=== PATIENT | male | born 1930 | race Caucasian/White ===

== ENCOUNTER 2016-06-25 10:28 | Day surgery (SDC) | payer MEDICARE, BC ==
--- NOTE | 2016-06-24 00:33 | PREOPHP ---
DATE OF ADMISSION: 06/25/2016 The patient will be admitted on 06/25/[address] Keys. CHIEF COMPLAINT: carcinoma of the urinary bladder. HISTORY OF PRESENT ILLNESS: This patient was found to have carcinoma of the urinary bladder in 2013. He has since had repeated episodes of cystoscopy approximately every 3 months to see if there is any tumor recurrence. The patient now returns for another cystoscopy after approximately 3 months to see if there is any recurrence of his bladder tumor, and if so, removal of these cancers locally. For family history, review of systems, past, history, etc., please see previous chart., account #[id number] dated 07/05/2015. FAMILY HISTORY: Noncontributory. MEDICATIONS: Patient takes the following medications: 1. Albuterol 2 puffs q.i.d. p.r.n. asthma. 2. Robitussin cough medicine, 2 teaspoons every 4 hours p.r.n. cough. 3. Docusate sodium 100 mg b.i.d. 4. Dulcolax rectal suppositories 1 daily p.r.n. constipation. 5. Pantoprazole 40 mg daily. 6. Tamsulosin 0.4 mg daily. 7. Vitamin B12 1000 mcg daily. 8. Vitamin C 500 mg daily. 9. Centrum Silver vitamins 1 daily. 10. Feosol 325 mg t.i.d. ALLERGIES: THE PATIENT HAS NO KNOWN DRUG ALLERGIES. PHYSICAL EXAMINATION: GENERAL: The patient is a well-developed white male who does not appear acutely or chronically ill. VITAL SIGNS: Blood pressure 148/70, pulse 84, respirations 16, temperature 98.6. SKIN: Stasis dermatitis of the lower legs bilaterally. NECK: Supple. Thyroid is not palpable. HEENT: Head is symmetrical with no evidence of injury or deformity. EYES: PERRLA, EOM normal. Discs flat. Peripheral and forward vision grossly intact. EARS, NOSE AND THROAT: Clear. HEART: PMI left fifth interspace, left midclavicular line. Grade I apical and pulmonic systolic mu rmurs. No distention of jugular veins. No ankle edema. Hepatojugular reflux is not present. LUNGS: Clear to A and P. ABDOMEN: Liver, kidneys, spleen are not palpable. Bowel sounds are normal. There are no intraabdo drew masses or bruits. GENITOURINARY: Normal external male genitalia. No hernias are evident. RECTAL: Ampulla empty. No rectal masses. Prostate is 2+ enlarged. No prostatic masses. MUSCULOSKELETAL: Bilateral stasis dermatitis of the lower legs. NEUROLOGIC: DTRs are normal and equal bilaterally including biceps, triceps, knees and ankles. Nivia ntars are flexor. No pathological reflexes are present. PERIPHERAL VASCULAR: No carotid or subclavian artery bruits. Femoral and dorsal pedal pulses are n ormal and equal bilaterally. Posterior tibial pulses are absent bilaterally. NEUROLOGICAL: The patient appears to be mildly mentally retarded. 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 The patient is cleared for surgery. Dictated By: BLAKE MYERS/STEFAN Conf#: [id number] DID#: [id number]
[~2016-06-25] VITALS: Ht 182.9 cm; Wt 84.3 kg
[2016-06-25] VITALS (12 sets, daily range): BP systolic 121–150; BP diastolic 59–80; PULSE 64–81; RESP 13–25; Ht 182.9 cm; Wt 84.3 kg
[~2016-06-25 10:28] MED LIST: ASCO500C7 PO; AZIT250T6 PO; DOCU-159 PO; FER325 PO; MULT-860 PO; PANT40TA3 PO; PHEN15SP14 NASAL; PYRI50TA80 PO; VIT1CAPS42 PO
[2016-06-25] MEDS ORDERED: TRHC5025 PO (12:19)
--- NOTE | 2016-06-25 12:32 | HPN ---
Date/Time of Note Date/Time of Note DATE: 06/25/16 TIME: 12:31 Interval H&P Admission Note Pt. seen H&P reviewed: No system changes URSULA HENRY MD Jun 25, 2016 12:32
[2016-06-25] MEDS ORDERED: GLYCOPYRROLATE 0.4 MG INJ ONE ×3 (12:46→13:06)
[2016-06-25] MEDS ORDERED: ROCURONIUM 50 MG INJ ONE (12:46)
[2016-06-25] MEDS ORDERED: PROPOFOL 20 ML ONE (12:46)
[2016-06-25] MEDS ORDERED: NEOSTIGMINE 3 MG/3 ML SYRINGE ONE ×2 (12:46→13:06)
[2016-06-25] MEDS ORDERED: SUCCINYLCHOLINE CHLORIDE 100 MG/5 ML SYG IV ONE (12:46)
[2016-06-25] MEDS ORDERED: LIDOCAINE 2% (SDV) 5 ML INJ ONE (12:46)
[2016-06-25] MEDS ORDERED: CIPROFLOXACIN 400MG/D5W 200 ML ONE (13:05)
[2016-06-25] MEDS ORDERED: METOCLOPRAMIDE 10 MG INJ IV PRN (14:00)
[2016-06-25] MEDS ORDERED: MEPERIDINE 25 MG INJ IV PRN (14:00)
[2016-06-25] MEDS ORDERED: MIDAZOLAM 1 MG/ML 2 ML INJ IV PRN (14:00)
[2016-06-25] MEDS ORDERED: ONDANSETRON 4 MG INJ IV PRN (14:00)
[2016-06-25] MEDS ORDERED: HYDROmorphONE (0.2 MG/ML) 10ML SYG IV PRN ×2 (14:00)
[2016-06-25] MEDS ORDERED: FENTAnyl 50 MCG/ML VIAL IV PRN ×2 (14:00)
[2016-06-25] MEDS ORDERED: DIPHENHYDRAMINE 50 MG INJ IV PRN (14:00)
[2016-06-25] MEDS ORDERED: HYDROCODONE/APAP (5/325) TAB PO PRN (14:00)
--- NOTE | 2016-06-25 14:18 | OPR ---
DATE OF OPERATION: 06/25/2016 PREOPERATIVE DIAGNOSIS: Bladder tumors. POSTOPERATIVE DIAGNOSIS: Bladder tumors. Pending pathology report. PROCEDURE PERFORMED: Transurethral resection and fulguration of bladder tumors. FINDINGS: The patient does have an erythematous area in the bladder on the right side proximal and lateral to the right ureteral orifice, and he does have multiple bladder diverticula. The bladder w as very trabeculated, and there is scar tissue from prior resection and fulguration of tumors. PROCEDURE: Transurethral resection of bladder tumors. TECHNIQUE: The patient was brought to the operating room. General anesthesia was induced. The pat ient was positioned in the lithotomy position. The genital area was prepped and draped in the usual sterile manner. Time out was done. The patient was identified by his name, date, and the pr ocedure and he was given 400 mg of Cipro IV at the start of the procedure. Then, a #26 [place] bipol ar resectoscope sheath was introduced under direct vision through the penile urethra all the way to the bladder. Once in the bladder, the area suspected of being the tumor and usually has had the car cinoma in situ kind of tumors, was visualized and it was mostly on the right side of the bladder pr oximal and lateral to the right ureteral orifice. The rest of the bladder was inspected and there w as no evidence of tumor or area suspicious for tumor. Then, using the resectoscope loop, these jackson ors were resected and electrofulgurated and any bleeder that was noted was coagulated. Care was mika en to stay away from the ureteral orifices. At the end of the procedure, the base and the edges wer e well fulgurated and then the bladder was emptied and there was no bleeding. The Cutler catheter wa s inserted, a #22 [place] 3-way with a 30 mL balloon. The irrigation port was plugged with a cathete r plug. I just put it in case we need to do any irrigation. The patient tolerated the procedure we ll and was transferred to recovery room in stable and satisfactory condition. We will later on luciano ve the Cutler catheter in about an hour and then if he voids okay and is stable, then he could go renetta e today. Dictated By: URSULA SOLARES/STEFAN Conf#: [id number] [facility]#: [id number]
== END 2016-06-25 16:00 | disposition home or self-care (01) ==
LOC: SDS 10:28
PROVIDERS: ATTEND Urology
DX: C67.9 Malignant neoplasm of bladder, unspecified (principal); J44.9 Chronic obstructive pulmonary disease, unspecified
CPT/HCPCS: 52234; 87086; 88305; 88342; J0330; J0744; J2710

== ENCOUNTER 2016-11-05 10:10 | Day surgery (SDC) | payer MEDICARE, BC ==
--- NOTE | 2016-11-04 04:30 | PREOPHP ---
DATE OF ADMISSION: 11/05/2016 This is a preoperative report. Please see the discharge on the chart and time per Dr. Keys, to do the surgery on Saturday November 05, 2016. CHIEF COMPLAINT: Carcinoma of the urinary bladder. HISTORY OF PRESENT ILLNESS: The patient has had carcinoma of the urinary bladder. He has had several cystoscopies with removal of an occasional recurrent tumor. The patient is in the hospital again at this time for another cystoscopy and check to see if there are any recurrent tumors involving his urinary bladder. Patient accordingly presents to the hospital at this time for this procedure. FAMILY HISTORY: Mother at age 89 of lung disease. Father of old age at 92. Brother of heart disease in his late 80s. Mother also had carcinoma of the breast but did not of this cause. PAST MEDICAL HISTORY: The patient has a past medical history schizophrenia. He received shock treatment as a young boy, and this resulted in some mental retardation. He has some mild chronic venous insufficiency and stasis dermatitis of both legs. He has varicose veins of both legs. He also suffers from chronic anemia and had been listed as having chronic anemia from . He had the recurrence of carcinoma of urinary bladder several months ago and has been going undergoing routine repeat cystoscopies approximately every 3 months to see if there is any recurrent tumor of the urinary bladder. MEDICATIONS: 1. Albuterol 2 puffs p.r.n. asthma. 2. Robitussin cough medicine 2 teaspoon every 4 hours p.r.n. cough. 3. Docusate sodium 100 mg twice a day. 4. Dulcolax rectal suppository p.r.n. constipation. 5. Pantoprazole 40 mg daily. 6. Tamsulosin 0.4 mg daily. 7. Vitamin B12 1000 mcg daily. 8. Vitamin C 500 mg daily. 9. Centrum Silver vitamins 1 daily. 10. Feosol 325 mg 3 times a day. ALLERGIES: SHE HAS NO KNOWN NO KNOWN DRUG ALLERGIES. PAST MEDICAL HISTORY: Schizophrenia since childhood, mental retardation because of shock treatments which he received in childhood because of schizophrenia. REVIEW OF SYSTEMS: CARDIOVASCULAR: No history of hypertension. No history of congenital heart disease, rheumatic fever, valvular heart disease, arrhythmia, coronary insufficiency, myocardial infarction, or angina pectoris. LUNGS: No history of asthma, tuberculosis, or pneumonia. GASTROINTESTINAL: No history of peptic ulcer disease, cholecystitis, hepatitis, jaundice, pancreatitis, ileitis, colitis, hematemesis, or melena. MUSCULOSKELETAL: No history of skeletal fracture. NEUROLOGICAL: No history of epilepsy, convulsion, or CVA. The patient had schizophrenia in his early life. This resulted in him getting shock treatment, which resulted in mental deficiency. The patient appears to be mildly mentally retarded. GENITOURINARY: History of carcinoma of the urinary bladder with recurrence. The patient undergoes cystoscopy every 3 months to check for recurrent tumor of the bladder. PHYSICAL EXAMINATION: GENERAL: The patient is a well-developed white male, who does not appear to be chronically ill. VITAL SIGNS: Blood pressure 150/72, pulse 84, respirations 16, temperature 98.6 SKIN: Stasis dermatitis of the lower legs bilaterally. NECK: Supple. Thyroid is not palpable. HEENT: The head is symmetrical with no evidence of injury or deformity. EYES: PERRLA. EOM normal. Discs flat. The peripheral form is grossly intact. EARS NOSE AND THROAT: Clear. HEART: PMI at left fifth interspace, left midclavicular line. Grade 1 apical and pulmonic systolic murmurs. No distention of jugular veins. No ankle edema. Hepatic jugular reflexes not present. CHEST: Clear to A and P. ABDOMEN: Liver, kidney, are spleen not palpable. Bowel sounds are normal. No intra-abdominal masses or bruits. GENITOURINARY: Normal external male genitalia. No hernias are evident. RECTAL: Rectal ampulla is empty. No rectal masses. Prostate is 2+ and enlarged, but no prostatic masses. MUSCULOSKELETAL: Bilateral stasis dermatitis of the legs. NEUROLOGICAL: DTRs are normal and equal bilaterally including biceps, triceps, wrist, knees, or ankles, plantars, and flexor. No pathological reflexes are present. PERIPHERAL VASCULAR: No carotid or subclavian artery bruits. Femoral and dorsal pedal pulses are normal and equal bilaterally. Posterior tibial pulses are absent bilaterally. NEUROLOGICAL: The patient appears to be mildly mentally retarded. IMPRESSION: 1. Recurrent carcinoma of the urinary bladder. 2. Mild mental retardation. 3. History of benign prostatic hyperplasia. 4. Chronic anemia. 5. Varicose veins of the legs bilaterally. 6. Stasis dermatitis of the lower legs bilaterally. 7. Schizophrenia in childhood with mild mental retardation. The patient has been cleared by his seamless tube roller for surgery and has been cleared medically by sd for surgery. Dictated By: Constantine Vegas MD /bakari/drew /Document#: [id number]
[2016-11-05] VITALS (10 sets, daily range): BP systolic 110–139; BP diastolic 61–72; PULSE 56–77; RESP 12–20; Ht 182.9 cm; Wt 84.0 kg
[~2016-11-05] VITALS: Ht 182.9 cm; Wt 84.0 kg
[~2016-11-05 10:10] MED LIST changes: -AZIT250T6 PO; +DESFLURANE 15 MIN ONE; +TRHC5025 PO
[2016-11-05] MEDS ORDERED: KEN25O TOP (10:48)
[2016-11-05] MEDS ORDERED: PYRI50TA80 PO (10:49)
[2016-11-05] MEDS ORDERED: FER325 PO (10:49)
[2016-11-05] MEDS ORDERED: VIT1TABL33 PO (10:51)
[2016-11-05] MEDS ORDERED: OXYM15SP NASAL (10:55)
[2016-11-05] MEDS ORDERED: OMEP40CA6 PO (10:55)
[2016-11-05] MEDS ORDERED: IPRA3AMP INHALATION (10:56)
[2016-11-05] MEDS ORDERED: ALBU2.5V3 NEB (10:56)
[2016-11-05] MEDS ORDERED: PROM5SYR2 PO (10:57)
[2016-11-05 12:32] LABS: INR 1.01; PROTIME 13.3 Sec (12.2-14.2)
--- NOTE | 2016-11-05 12:37 | HPN ---
Date/Time of Note Date/Time of Note DATE: 11/05/16 TIME: 12:37 Interval H&P Admission Note Pt. seen H&P reviewed: No system changes URSULA HENRY MD Nov 05, 2016 12:37
[2016-11-05] MEDS ORDERED: PROPOFOL 20 ML ONE (12:38)
[2016-11-05] MEDS ORDERED: LIDOCAINE 2% (SDV) 5 ML INJ ONE (12:38)
[2016-11-05] MEDS ORDERED: FENTAnyl 50 MCG/ML VIAL ONE (12:38)
[2016-11-05] MEDS ORDERED: ROCURONIUM 50 MG INJ ONE (12:38)
[2016-11-05 12:48] LABS: PARTIAL THROMBOPLASTIN TIME 35.5 Sec (25.0-35.0)
[2016-11-05] MEDS ORDERED: CIPROFLOXACIN 400MG/D5W 200 ML ONE (12:59)
[2016-11-05] MEDS ORDERED: FENTAnyl 50 MCG/ML VIAL IV PRN ×2 (13:00)
[2016-11-05] MEDS ORDERED: METOCLOPRAMIDE 10 MG INJ IV PRN (13:00)
[2016-11-05] MEDS ORDERED: MEPERIDINE 25 MG INJ IV PRN (13:00)
[2016-11-05] MEDS ORDERED: HYDROmorphONE (0.2 MG/ML) 10ML SYG IV PRN ×2 (13:00)
[2016-11-05] MEDS ORDERED: ONDANSETRON 4 MG INJ IV PRN (13:00)
[2016-11-05] MEDS ORDERED: DIPHENHYDRAMINE 50 MG INJ IV PRN (13:00)
[2016-11-05] MEDS ORDERED: METHYLENE BLUE 1% 10 ML INJ ONE (13:02)
[2016-11-05] MEDS ORDERED: SUGAMMADEX SODIUM 200 MG/2 ML VIAL IV ONE (13:42)
[2016-11-05] MEDS ORDERED: DEXTROSE 5%-0.45% NACL 1,000 ML IV SCH (14:03)
--- NOTE | 2016-11-05 14:17 | OPR ---
Date/Time of Note Date/Time of Note DATE: 11/05/16 TIME: 14:10 Operative Report Procedure Date: Nov 05, 2016 Preoperative Diagnosis Bladder tumor Postoperative Diagnosis Bladder tumor Operation Performed Transurethral resection of bladder tumor and fulguration Surgeon: URSULA HENRY MD Anesthesia: general Anesthesiologist: MAYRA RUFFIN Estimated Blood Loss: minimal Specimens Bladder tumors Complications: None Pt Condition Post Procedure: stable Indications Recurrent bladder tumors Operative\Procedure Findings Bladder tumor Procedure Description Patient was brought to the operating room and given general anesthesia. Timeout was done ,the patient was identified by his name, birthdate and the procedure. The patient was given 400 mg of Cipro IV at the start of the procedure. Patient was positioned in the lithotomy position. The genital area was prepped and draped in the usual sterile manner. #22 [place] cystoscope was introduced under direct vision through the penile urethra all the way to the bladder. The right ureteral orifice was identified however the left ureteral orifice could not be seen. Then the anesthesiologist gave him 5 mL of methylene blue. The cystoscope was then removed and a 26 [place] bipolar resectoscope was introduced into the bladder. The areas that looked red and suspicious for tumors were resected and electrocoagulated the bladder was inspected thoroughly and only the red areas where dissected and electrocoagulated. Good hemostasis was obtained. The resectoscope was then removed. #22 [place] Cutler catheter three-way was a 30 cc balloon was inserted. Continuous bladder irrigation was started in the operating room. The Cutler catheter connected to a drainage bag and the patient was transferred to recovery room in stable and satisfactory condition. URSULA HENRY MD Nov 05, 2016 14:17
[2016-11-05] MEDS ORDERED: ALBUTEROL 0.083% (NEB) 2.5 MG/3 ML AMP NEB PRN (14:30)
[2016-11-05] MEDS ORDERED: ALBUTEROL/IPRATROPIUM (NEB) 3 ML AMP INH PRN (14:30)
[2016-11-05] MEDS ORDERED: PROMETHAZINE/CODEINE 5ML CUP PO PRN (15:00)
[2016-11-05] MEDS: ASCORBIC ACID 500 MG TAB PO SCH ×2 (15:40→20:33)
[2016-11-05] MEDS: DOCUSATE SODIUM 100 MG CAP PO SCH ×2 (15:40→20:33)
[2016-11-05] MEDS: CIPROFLOXACIN 500 MG TAB PO SCH (17:57)
[2016-11-05] MEDS: FERROUS SULFATE (EC) 325 MG TAB PO SCH (20:33)
[2016-11-05] MEDS: OXYMETAZOLINE 0.05% 15 ML NAS SPRAY NASAL SCH (21:00)
[2016-11-06 00:14] VITALS: BP 104/58; RESP 18
[2016-11-06 05:42] LABS: BASOPHILS % 0.3 % (0.0-2.0); EOSINOPHILS # 0.4 10^3/ul (0.0-0.5); EOSINOPHILS % 2.4 % (0.0-7.0); HEMATOCRIT 33.7 % (42.0-52.0); HEMOGLOBIN 11.2 g/dl (14.0-18.0); LYMPHOCYTES % 13.7 % (15.0-51.0); MEAN CORPUSCULAR HEMOGLOBIN 29.5 pg (29.0-33.0); MEAN CORPUSCULAR HGB CONC 33.2 g/dl (32.0-37.0); MEAN CORPUSCULAR VOLUME 88.7 fl (82.0-101.0); MEAN PLATELET VOLUME 11.1 fl (7.4-10.4); MONOCYTE # 1.2 10^3/ul (0.3-0.9); MONOCYTES % 8.3 % (0.0-11.0); NEUTROPHIL # 10.9 10^3/ul (1.6-7.5); NEUTROPHILS % 74.7 % (39.0-77.0); PLATELET COUNT 245 10^3/UL (140-415); RED CELL DISTRIBUTION WIDTH 14.3 % (11.5-14.5); WHITE BLOOD COUNT 14.5 10^3/ul (4.8-10.8)
[2016-11-06] MEDS ORDERED: PANTOPRAZOLE (EC) 40 MG TAB PO SCH ×2 (06:00→07:00)
[2016-11-06] MEDS: CIPROFLOXACIN 500 MG TAB PO SCH (06:05)
[2016-11-06 08:40] VITALS: BP 142/67; RESP 18
[2016-11-06] MEDS: OXYMETAZOLINE 0.05% 15 ML NAS SPRAY NASAL SCH (08:49)
[2016-11-06] MEDS: FERROUS SULFATE (EC) 325 MG TAB PO SCH ×2 (08:49→13:15)
[2016-11-06] MEDS: ASCORBIC ACID 500 MG TAB PO SCH (08:50)
[2016-11-06] MEDS: DOCUSATE SODIUM 100 MG CAP PO SCH (08:50)
[2016-11-06] MEDS ORDERED: MULTIVITAMINS/MINERALS TAB PO SCH (09:00)
[2016-11-06] MEDS ORDERED: PYRIDOXINE 50 MG TAB PO SCH (09:00)
[2016-11-06] MEDS ORDERED: TRIAMCINOLONE ACET 0.025% 15 GM OINT TOP SCH (09:00)
[2016-11-06] MEDS ORDERED: BETA CAROTENE/VIT C/E/MIN TAB PO SCH (09:00)
[2016-11-06 11:36] LABS: CREATININE 0.97 mg/dl (0.61-1.24); POTASSIUM 4.2 mmol/L (3.5-5.1)
--- NOTE | 2016-11-06 14:05 | PDOCDIS ---
Discharge Instructions CONDITION Patient Condition: Good HOME CARE INSTRUCTIONS: Diet Instructions: RegularSpecial Diet: REGULAR ACTIVITY: Activity Restrictions: Slowly Increase Activity FOLLOW UP/APPOINTMENTS Follow-up Plan November 12 URSULA HENRY MD Nov 06, 2016 14:05
--- NOTE | 2016-11-06 14:11 | DS ---
Date/Time of Note Date/Time of Note DATE: 11/06/16 TIME: 14:07 Discharge Summary Admission/Discharge Info Admit Date/Time November 05, 2016 Discharge Date/Time November 06, 2069 Discharge Diagnosis Bladder tumors, pending pathology report Patient Condition: Good Procedures Transurethral resection of bladder tumors Hx of Present Illness 85-year-old male known to have a history of bladder tumors and carcinoma in situ in the bladder. Cystoscopy in the office showed areas of redness in the bladder suspicious for recurrent cancer and carcinoma in situ. Patient was admitted and underwent a transurethral resection/fulguration of all the red areas in the bladder. Postop he had continuous bladder irrigation and that was stopped last night. The urine remained clear, patient is being discharged today and he will follow-up in the office Hospital Course Hospital course was uneventful patient will continue the medication that he was on prior to admission as well as same diet and he will follow-up with me in the office on November 12, 2016 Home Meds Reported Medications Promethazine HCl/Codeine (Prometh-Codein 6.25-10 mg/5 ml) 5 Ml Syrup, 5 ML PO Q6 Y for COUGH 11/05/16 Ipratropium-Albuterol (Ipratropium-Albuterol) 0.5-3 Mg/3 Ml Ampul.neb, 3 ML INHALATION Q6 Y for WHEEZING AND SOB, #30 VIAL 11/05/16 Albuterol Sulfate* (Albuterol Sulfate* Neb) 0.083%-3 Ml Neb, 2.5 MG NEB Q3H Y for WHEEZING AND SOB, #30 VIAL 11/05/16 Omeprazole* (Omeprazole*) 40 Mg Capsule.dr, 40 MG PO DAILY, #30 CAP 11/05/16 Oxymetazoline Hcl* (Norberto-Synephrine* 12 Hour Nasal) 0.05% - 15 Ml [place].pump, 1 SPRAY NASAL Q12, EA TO EACH NOSTRIL 11/05/16 Vit A/Vit C/Vit E/Zinc/Copper (PRESERVISION AREDS TABLET) 1 Each Tablet, 1 EACH PO DAILY, TAB 11/05/16 Pyridoxine Hcl (Vitamin B6) 50 Mg Tab, 100 MG PO DAILY, TAB 11/05/16 Ferrous Sulfate* (Ferrous Sulfate*) 325 Mg Tabec, 325 MG PO TID, TAB 11/05/16 Triamcinolone Acetonide* (Kenalog*) 0.025%-15GM Oint, 1 APPLIC TOP DAILY, #1 EA 11/05/16 Mu-Vits-Min Th/Lycopene/Lutein (CENTRUM SILVER TABLET) 1 Each Tablet, 1 EACH PO DAILY, TAB 02/06/16 Docusate Sodium* (Docusate Sodium*) 100 Mg Capsule, 100 MG PO BID, #60 CAP 02/06/16 Ascorbic Acid* (Vitamin C*) 500 Mg Capsule.sa, 500 MG PO BID, CAP 02/06/16 Pantoprazole* (Protonix*) 40 Mg Tablet.dr, 40 MG PO AC BREAKFAST, TAB 02/06/16 Discontinued Reported Medications Triamterene-HCTZ* (Triamterene-HCTZ*) 50 - 25 Mg Cap, 1 CAP PO DAILY, CAP 06/25/16 Phenylephrine Hcl* (Norberto-Synephrine* Nasal) 0.25% - 15 Ml [place], 2 SPRAY NASAL Q4H Y for CONGESTION, SPRAY USE FOR 5 DAYS THEN 7 DAYS OFF 02/06/16 Vit C/E/Zn/Coppr/Lutein/Zeaxan (Preservision Areds 2 Softgel) 1 Each Capsule, 1 EACH PO BID, CAP 02/06/16 Pyridoxine Hcl (Vitamin B6) 50 Mg Tab, 100 MG PO, TAB 02/06/16 Ferrous Sulfate* (Ferrous Sulfate*) 325 Mg Tabec, 325 MG PO TID, TAB 02/06/16 Primary Care Provider Constantine Vegas MD Pending Labs Laboratory Tests Test 11/06/16 05:06 11/06/16 11:01 White Blood Count 14.510^3/ul (4.8-10.8) Red Blood Count 3.8010^6/ul (4.70-6.10) Hemoglobin 11.2g/dl (14.0-18.0) Hematocrit 33.7% (42.0-52.0) Mean Corpuscular Volume 88.7fl (82.0-101.0) Mean Corpuscular Hemoglobin 29.5pg (29.0-33.0) Mean Corpuscular Hemoglobin Concent 33.2g/dl (32.0-37.0) Red Cell Distribution Width 14.3% (11.5-14.5) Platelet Count 27050^3/UL (140-415) Mean Platelet Volume 11.1fl (7.4-10.4) Neutrophils % 74.7% (39.0-77.0) Lymphocytes % 13.7% (15.0-51.0) Monocytes % 8.3% (0.0-11.0) Eosinophils % 2.4% (0.0-7.0) Basophils % 0.3% (0.0-2.0) Nucleated Red Blood Cells % 0.0/100WBC (0.0-0.0) Neutrophils # 10.910^3/ul (1.6-7.5) Lymphocytes # 2.010^3/ul (0.8-2.9) Monocytes # 1.210^3/ul (0.3-0.9) Eosinophils # 0.410^3/ul (0.0-0.5) Basophils # 0.010^3/ul (0.0-0.1) Nucleated Red Blood Cells # 0.010^3/ul (0.0-0.0) Sodium Level 141mmol/L (135-144) Potassium Level 4.2mmol/L (3.5-5.1) Chloride Level 100mmol/L (97-110) Carbon Dioxide Level 28mmol/L (21-31) Anion Gap 17 (8-16) Blood Urea Nitrogen 18mg/dl (7-20) Creatinine 0.97mg/dl (0.61-1.24) Glucose Level 97mg/dl (70-220) Calcium Level 9.0mg/dl (8.4-10.2) URSULA HENRY MD Nov 06, 2016 14:11
== END 2016-11-06 14:40 | disposition home or self-care (01) ==
LOC: SDS 10:10 → MS1 14:31 → SDS 11-06 14:40
PROVIDERS: ATTEND Urology
DX: N32.89 Other specified disorders of bladder (principal); F70 Mild intellectual disabilities; N40.0 Benign prostatic hyperplasia without lower urinary tract symptoms; D64.9 Anemia, unspecified; I83.12 Varicose veins of left lower extremity with inflammation; I83.11 Varicose veins of right lower extremity with inflammation; F20.9 Schizophrenia, unspecified; Z82.49 Family history of ischemic heart disease and other diseases of the circulatory system
CPT/HCPCS: 52234; 80048; 85025; 85610; 85730; 88305; J0744; J3010; J7042

== ENCOUNTER 2017-07-15 10:21 | Day surgery (SDC) | END 2017-07-15 18:40 | disposition home or self-care (01) ==

== ENCOUNTER 2017-12-16 10:09 | Day surgery (SDC) | END 2017-12-16 16:20 | disposition home or self-care (01) ==

== ENCOUNTER 2018-09-08 10:49 | Day surgery (SDC) | payer MEDICARE, BC ==
--- NOTE | 2018-09-07 14:59 | HP ---
DATE OF ADMISSION: 09/08/2018 ADMITTING DIAGNOSIS: Recurrent carcinoma of the bladder for elective transurethral resection of blad tyler tumor by Dr. Keys. HISTORY OF PRESENT ILLNESS: The patient is an 87-year-old male with a recurrent bladder carcinoma, s chizophrenia, asthma, gastroesophageal reflux disease and BPH who continues to have recurrent bladder tumors. The patient recently had a cystoscopy done a few months ago and is to get a removal of tumo rs found at that time. The patient denies any fevers, chills or night sweats. The patient denies an y hematuria or burning with urination, but does have some nocturia. REVIEW OF SYSTEMS: No chest pain, no shortness of breath. The patient has intermittent cough. No o rthopnea, no palpitations. Occasional swelling in the ankles, intermittent constipation and intermit tent heartburn. No headache, no dizziness. PAST MEDICAL HISTORY: 1. Recurrent carcinoma of the bladder, status post multiple surgeries and removal. 2. Schizophrenia. 3. Asthma. 4. Gastroesophageal reflux disease. 5. Benign prostatic hypertrophy. 6. Hyperlipidemia. 7. Chronic anemia. 8. Chronic kidney disease stage III. PAST SURGICAL HISTORY: Multiple removal of bladder tumors in the past. FAMILY HISTORY: Mother at age 89 of lung disease. Father at 92 of unknown cause. One bro ther in his late 80s of heart disease. SOCIAL HISTORY: No tobacco, no alcohol use. The patient is a resident at [facility]. MEDICATIONS: 1. Omeprazole 40 mg every day. 2. Albuterol and ipratropium for p.r.n. use in the nebulizer. 3. Montelukast 10 mg daily. 4. Triamterene/hydrochlorothiazide 37.5/25 daily. 5. Gemfibrozil 600 mg b.i.d. 6. Docusate sodium 100 mg daily. ALLERGIES: NONE. PHYSICAL EXAMINATION: VITAL SIGNS: Temperature 97.8, pulse of 81, respirations 16, blood pressure 117/59, oxygen saturatio n 96% on room air. GENERAL: Well-developed, well-nourished male in no acute distress. SKIN: Without obvious rashes. HEENT: EOMI, PERRLA. Oropharynx is clear. NECK: No elevated jugular venous distention, 2+ carotid upstroke without bruits. No thyromegaly. N o lymphadenopathy. CHEST: Clear to auscultation bilaterally. HEART: Regular rate and rhythm. Normal S1, S2. There is a 1/6 systolic ejection murmur best at the left lower sternal border without radiation. ABDOMEN: Soft, nontender, nondistended, normoactive bowel sounds. No hepatosplenomegaly, no hepatoj ugular reflux. RECTAL: Deferred to Urology. EXTREMITIES: No cyanosis, clubbing or edema. NEUROLOGIC: Nonfocal. DIAGNOSTIC EXAMINATION: Glucose of 102, creatinine 1.38, BUN of 25. Sodium 141, potassium 4.5, chlo ride of 105, bicarbonate 26, calcium 9.8, protein 7.3, albumin 4.4, alkaline phosphatase 113, AST of 21, ALT of 15. PTT of 34. INR 1.0, PT of 10.8. White blood cell count 8.6, hemoglobin 10.6, hemato crit 30.3, platelets of 349. Urinalysis shows 3+ occult blood, no protein, no nitrite, 2+ leukocyte esterase, 20 to 40 white blood cells and 10 to 20 red blood cells and urine culture is negative. EKG shows normal sinus rhythm with first-degree AV block but no acute changes and no change from prior E KG. Chest x-ray is pending at the time of this dictation. ASSESSMENT AND PLAN: The patient is an 87-year-old male with recurrent bladder tumors who also has b enign prostatic hypertrophy, gastroesophageal reflux disease, asthma, hyperlipidemia and schizophreni a. The patient is to undergo elective removal of the bladder tumor. 1. Recurrent bladder tumors. The patient is an ASA class 2 anesthesia risk and may proceed with the procedure as scheduled. There are no contraindications to surgery as scheduled. 2. Gastroesophageal reflux disease, stable. Continue with the patient's medications, but he does no t need to take the medication on the day of the surgery. 3. Asthma. Continue with p.r.n. use of his inhalers as well as the Singulair, but the patient does not need to take the medication on the day of surgery. 4. Constipation. Continue with diet and docusate. 5. Schizophrenia, stable without medications. 6. Chronic renal insufficiency, stable. 7. Anemia, stable. Continue to monitor, but no contraindications to surgery. Dictated By: LUNA BAILEY MD SR/NTS Conf#: [id number] DID#: [id number] CC: URSULA KEYS MD;*End*
[2018-09-08] VITALS (22 sets, daily range): BP systolic 121–152; BP diastolic 57–83; PULSE 54–68; RESP 12–32; Ht 170.2 cm; Wt 76.4 kg
[~2018-09-08] VITALS: Ht 170.2 cm; Wt 76.4 kg
--- NOTE | 2018-09-08 07:34 | HPN ---
Date/Time of Note Date/Time of Note DATE: 09/08/18 TIME: 07:34 Interval H&P Admission Note Pt. seen H&P reviewed: No system changes URSULA HENRY MD Sep 08, 2018 07:34
[~2018-09-08 10:49] MED LIST changes: +ALBU2.5V3 NEB; +AZEL137S9 NASAL; -DESFLURANE 15 MIN ONE; +GEMF600T8 PO; +IPRA3AMP29 INHALATION; +MONT10TA24 PO; +OMEP40CA6 PO; +ONDA4TAB95 PO; -PANT40TA3 PO; -PHEN15SP14 NASAL; +PROM5SYR2 PO; +PYRI50TA15 PO; -PYRI50TA80 PO; +SEVOFLURANE 15 MIN ONE; -TRHC5025 PO; +TRIA1CAP PO; +VIT1CAPS15 PO; -VIT1CAPS42 PO
[2018-09-08] MEDS ORDERED: INDIGOTINDISULFONATE 0.8% 5 ML INJ ONE (12:46)
--- NOTE | 2018-09-08 13:32 | PREAC ---
Date/Time of Note Date/Time of Note DATE: 09/08/18 TIME: 13:30 Anesthesia Eval and Record Evaluation Time Pre-Procedure Interview DATE: 09/08/18 TIME: 13:30 Age 87 Sex male NPO: 8 hrs Preoperative diagnosis Bladder CA Planned procedure TURBT Past Medical History Past Medical History: Includes Cardio: Dyslipidemia Pulm: Asthma Renal: CKD, Other (Bladder CA) Heme: Anemia Psych: Other (Schizo) Surgery & Anesthesia Issues No known issue Meds Anticoagulation: No Beta Jet within 24 hr: No Reason Beta Jet not given: Pt. not on B-Jet Reported Medications Promethazine HCl/Codeine (Prometh-Codein 6.25-10 mg/5 ml) 5 Ml Syrup, 30 ML PO Q4 PRN for COUGH 07/15/17 Ondansetron Hcl* (Ondansetron Hcl*) 4 Mg Tablet, 4 MG PO Q8 PRN for NAUSEA AND/OR VOMITING, TAB 07/15/17 Ipratropium-Albuterol (Ipratropium-Albuterol) 0.5-3 Mg/3 Ml Ampul.neb, 3 ML INHALATION Q4 PRN for WHEEZING AND SOB, #30 VIAL 07/15/17 Gemfibrozil* (Gemfibrozil*) 600 Mg Tablet, 600 MG PO BID, TAB 07/15/17 Azelastine Hcl* (Azelastine Hcl*) 137 Mcg/0.137 Ml [place].pump, 1 SPRAY NASAL QHS, #1 EA TO EACH NOSTRIL 07/15/17 Vit C/Renata Ac/Lut/Copper/Znox (PRESERVISION LUTEIN SOFTGEL) 1 Each Capsule, 1 EACH PO BID, CAP 07/15/17 Triamterene/Hydrochlorothiazid (Dyazide 37.5-25 Capsule) 1 Each Capsule, 1 EACH PO DAILY, CAP 07/15/17 Montelukast Sodium* (Montelukast Sodium*) 10 Mg Tablet, 10 MG PO QHS, #30 TAB 07/15/17 Albuterol Sulfate* (Albuterol Sulfate* Neb) 0.083%-3 Ml Neb, 2.5 MG NEB Q4 PRN for WHEEZING AND SOB, #30 VIAL 11/05/16 Omeprazole* (Omeprazole*) 40 Mg Capsule.dr, 40 MG PO DAILY, #30 CAP 11/05/16 Pyridoxine Hcl (Vitamin B6) 50 Mg Tab, 100 MG PO DAILY, TAB 11/05/16 Ferrous Sulfate* (Ferrous Sulfate*) 325 Mg Tabec, 325 MG PO TID, TAB 11/05/16 Mu-Vits-Min Th/Lycopene/Lutein (CENTRUM SILVER TABLET) 1 Each Tablet, 1 EACH PO DAILY, TAB 02/06/16 Docusate Sodium* (Docusate Sodium*) 100 Mg Capsule, 100 MG PO BID, #60 CAP 02/06/16 Ascorbic Acid* (Vitamin C*) 500 Mg Capsule.sa, 500 MG PO BID, CAP 02/06/16 Meds reviewed: Yes Allergies Coded Allergies: No Known Allergy (Unverified , 09/08/18) Allergies Reviewed: Yes Labs/Studies Labs Reviewed: Reviewed by anesthesiologist test: N/A Pre-procedure Exam Last vitals Vital Signs Date Temp Pulse Resp B/P (MAP) Pulse Ox O2 O2 Flow FiO2 Time Delivery Rate 09/08/18 98.4 68 16 122/57 97 Room Air 12:22 (78) Airway: Adequate mouth opening Mallampati: Mallampati II Teeth: Normal Lung: Normal Heart: Normal ASA Physical Status ASA physical status: 2 Emergency: None Planned Anesthetic General/MAC: LMA Pre-operative Attestations Prior to commencing anesthesia and surgery, the patient was re-evaluated, there was verification of: *The patient's identity *The results of appropriate recent lab work and preoperative vital signs *The above evaluation not changing prior to induction *Anesthetic plan, risk benefits, alternative and complications discussed with patient/family; questions answered; patient/family understands, accepts and wishes to proceed. NEMO SANDERS MD Sep 08, 2018 13:32
[2018-09-08] MEDS ORDERED: CIPROFLOXACIN 400MG/D5W 200 ML ONE (13:36)
[2018-09-08] MEDS ORDERED: PROPOFOL 20 ML ONE (13:36)
[2018-09-08] MEDS ORDERED: ONDANSETRON 4 MG INJ IV PRN (14:30)
--- NOTE | 2018-09-08 14:54 | OPR ---
Date/Time of Note Date/Time of Note DATE: 09/08/18 TIME: 14:48 Operative Report Procedure Date: Sep 08, 2018 Preoperative Diagnosis History of bladder tumor possible recurrence of bladder tumor Postoperative Diagnosis Same pending pathology report Operation/Procedure Performed Transurethral resection and fulguration of bladder tumors and bilateral ureteral catheterization Surgeon see signature line Aspnet Developer Nani Alvarez Anesthesia Type: general Anesthesiologist: NEMO SANDERS MD Estimated Blood Loss: 0 - 10 ml's Transfusion none Specimen Bladder tumor Grafts/Implants none Complications none Pt Condition Post Procedure: stable Disposition: PACU Indications History of bladder tumor and possible recurrence of the bladder tumor patient does have areas of erythema and these are suggestive of carcinoma in situ. Procedure Description Patient was brought to the operating room and given general anesthesia. The patient was positioned in the lithotomy position and the external genitalia were prepped and draped in the usual sterile manner. Patient was given 400 mg of Cipro IV at the start of the procedure. Timeout was done and the patient was identified by his name, birthdate and the procedure. #22 Mal[place] cystoscope sheath was then introduced under direct vision through the penile urethra all the way to the bladder. The bladder was inspected and then the cystoscope was removed and the bipolar resectoscope 26 Mal[place] was introduced into the bladder. The patient was given 5 mL of indigo carmine at the start of the procedure to help identify the ureteral orifices. However after half hour there was no indigo carmine coming out. I did feel great a lot of areas that appeared to be red and erythematous suggestive of carcinoma in situ. Since I did not see the ureteral orifices with the methylene blue coming out of them I had removed the resectoscope and reintroduced the cystoscope and then I did pass 5 Malian ureteral catheter in both right and left ureteral orifices and that confirmed the fact that these are the orifices as I was able to see bluish urine coming out from them. I left the ureteral catheter in place then reintroduced the bipolar resectoscope and electrocoagulated all the suspicious areas. Good hemostasis was obtained then I removed the resectoscope and the ureteral catheters and inserted a 24 Malian three-way Cutler catheter. Inflated the balloon with 30 mL of sterile water and connected the catheter to a drainage bag the irrigation port was plugged with a catheter plug. Patient was transferred to the recovery room in a stable and satisfactory condition. URSULA HENRY MD Sep 08, 2018 14:54
--- NOTE | 2018-09-08 14:55 | PAC ---
Date/Time of Note Date/Time of Note DATE: 09/08/18 TIME: 14:54 Post-Anesthesia Notes Post-Anesthesia Note Last documented vital signs Vital Signs Date Temp Pulse Resp B/P (MAP) Pulse Ox O2 O2 Flow FiO2 Time Delivery Rate 09/08/18 98.4 68 16 122/57 97 Room Air 12:22 (78) Activity: WNL Respiratory function: WNL Cardiovascular function: WNL Mental status: Baseline Pain reasonably controlled: Yes Hydration appropriate: Yes Nausea/Vomiting absent: Yes NEMO SANDERS MD Sep 08, 2018 14:55
[2018-09-08] MEDS: FENTAnyl 50 MCG/ML VIAL IV PRN ×2 (15:50→16:13)
[2018-09-08] MEDS: HYDROmorphONE 1 MG/5 ML IV SYRINGE IV PRN ×2 (16:02→16:13)
== END 2018-09-08 17:30 | disposition home or self-care (01) ==
LOC: SDS 10:49
PROVIDERS: ATTEND Urology
DX: D09.0 Carcinoma in situ of bladder (principal); I12.9 Hypertensive chronic kidney disease with stage 1 through stage 4 chronic kidney disease, or unspecified chronic kidney disease; N18.9 Chronic kidney disease, unspecified; J45.909 Unspecified asthma, uncomplicated; E78.5 Hyperlipidemia, unspecified
CPT/HCPCS: 52224; 87086; 88104; 88305; J0744; J1170; J3010